=== PATIENT | male | born 1945 ===

== ENCOUNTER 2023-11-13 11:08 | Day surgery (SDC) | payer OTHER ==
[~2023-11-13] VITALS: Ht 177.8 cm; Wt 60.9 kg
[~2023-11-13 11:08] MED LIST: AMLO10 PO; Ativan1 MG PO; HYDR1TAB94 PO; MIRT30 PO; TAMS.4ER PO
[2023-11-13 11:39] VITALS: BP 117/70
[2023-11-13] MEDS ORDERED: HYDR1TAB94 PO (11:42)
[2023-11-13] MEDS ORDERED: NS 250 ML IV ONE (12:19)
[2023-11-13] MEDS ORDERED: NS 500 ML IV ONE (12:24)
[2023-11-13] MEDS ORDERED: FentaNYL Citrate 50 MCG/ML 2 ML Injection ONE (12:24)
[2023-11-13] MEDS ORDERED: Midazolam HCl 1MG / ML 2ML Vial ONE (12:24)
[2023-11-13 13:45] VITALS: BP 124/68
--- NOTE | 2023-11-13 13:48 | NUR ---
PT BACK TO RECOVERY ROOM. PT REPOSITIONED FOR COMFORT. GIVEN PEPESI PER REQUEST.
[2023-11-13 14:00] VITALS: BP 130/68
[2023-11-13 14:15] VITALS: BP 126/75
--- NOTE | 2023-11-13 14:41 | NUR ---
PT VERBALIZE D/C INSTRUCTIONS. IV D/C CATHETER INTACT. PT WHEELED OUT TO FAMILY CAR.
== END 2023-11-13 16:27 | disposition home or self-care (01) ==
LOC: MHTC 11:08
PROC: 0T25X0Z Change Drainage Device in Kidney, External Approach (ICD-10-PCS; principal; 2023-11-13)
DX: Z46.6 Encounter for fitting and adjustment of urinary device (principal); N13.1 Hydronephrosis with ureteral stricture, not elsewhere classified; C67.0 Malignant neoplasm of trigone of bladder; I10 Essential (primary) hypertension; Z79.899 Other long term (current) drug therapy
CPT/HCPCS: 99152; C1729; C1769; J2250; J3010; J7040; J7050; Q9967